=== PATIENT | female | born 1975 | race Caucasian/White ===

== ENCOUNTER 2017-01-27 16:16 | Emergency (ER) | payer OTHER | END 2017-01-27 17:15 | disposition home or self-care (01) | LOC: ER 16:16 | DX: S93.402A Sprain of unspecified ligament of left ankle, initial encounter (principal); S83.92XA Sprain of unspecified site of left knee, initial encounter; X50.0XXA Overexertion from strenuous movement or load, initial encounter; Y92.019 Unspecified place in single-family (private) house as the place of occurrence of the external cause; Z79.899 Other long term (current) drug therapy; Z88.0 Allergy status to penicillin | CPT/HCPCS: 73564; 73610; 99070; 99283 ==

== ENCOUNTER 2017-02-09 08:00 | Emergency (ER) | payer OTHER | END 2017-02-09 12:05 | disposition short-term general hospital (02) | LOC: ER 08:00 | DX: S32.039A Unspecified fracture of third lumbar vertebra, initial encounter for closed fracture (principal); S22.32XA Fracture of one rib, left side, initial encounter for closed fracture; W10.9XXA Fall (on) (from) unspecified stairs and steps, initial encounter; Z79.899 Other long term (current) drug therapy | CPT/HCPCS: 72131; 72192; 96372; 99284-25 ==